=== PATIENT | female | born 1930 | race Caucasian/White ===

== ENCOUNTER 2017-11-13 18:05 | Observation (INO) ==
[2017-11-13] MEDS ORDERED: fentaNYL Citrate Inj 100 MCG/2 ML Ampul IV.PUSH ONE (18:19)
[2017-11-13] MEDS ORDERED: Lidocaine 1%/Epinephrine 1:100,000 Inj 50 ML Vial INFILTRATN ONE (18:46)
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
--- NOTE | 2017-11-13 19:07 | XR ---
EXAM DATE: 11/13/2017 7:01 PM EDT AGE/SEX: 87 years / Female INDICATIONS: Left knee pain CLINICAL DATA: This is the patient's initial encounter. Patient reports that signs and symptoms have been present for 1 day and indicates a pain score of 7/10. MEDICAL/SURGICAL HISTORY: Arthritis. Total knee replacement, right. COMPARISON: . FINDINGS: Severe osteoarthritis is noted involving the medial femoral tibial joint. Moderate osteoarthritis is noted involving the patellofemoral joint. There is no acute fracture or dislocation. No knee joint ef fusion is noted. Chondrocalcinosis is noted. CONCLUSION: 1. 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 2. No acute fracture or dislocation. 3. Chondrocalcinosis. Electronically signed by: Davon Olsen MD 11/13/2017 7:06 PM EDT
--- NOTE | 2017-11-13 19:08 | XR ---
EXAM DATE: 11/13/2017 7:01 PM EDT AGE/SEX: 87 years / Female INDICATIONS: Right knee pain CLINICAL DATA: This is the patient's initial encounter. Patient reports that signs and symptoms have been present for 1 day and indicates a pain score of 7/10. MEDICAL/SURGICAL HISTORY: Arthritis. Total knee replacement, right. COMPARISON: . FINDINGS: There is no acute fracture or dislocation of the right knee. Right total knee arthroplasty has been p erformed. The prosthesis appears to be in good position. CONCLUSION: 1. No acute fracture or dislocation. 2. Status post right total knee arthroplasty. Electronically signed by: Davon Olsen MD 11/13/2017 7:07 PM EDT
[2017-11-13 19:47] LABS: Baso % (Auto) 0.3 % (0.0-2.0); Eos % (Auto) 0.5 % (0.0-4.0); Hematocrit 37.1 % (35.0-46.0); Hemoglobin 12.2 gm/dL (11.6-15.3); Lymph # (Auto) 0.9 th/mm3 (1.0-4.8); Lymph % (Auto) 9.3 % (9.0-44.0); Mean Corpuscular Hemoglobin 34.4 pg (27.0-34.0); Mean Corpuscular Volume 104.4 fL (80.0-100.0); Mean Platelet Volume 8.4 fL (7.0-11.0); Mono # (Auto) 0.8 th/mm3 (0.0-0.9); Mono % (Auto) 8.1 % (0.0-8.0); Neut % (Auto) 81.8 % (16.0-70.0); Platelet Count 192 th/mm3 (150-450); Red Blood Count 3.55 mil/mm3 (4.00-5.30); Red Cell Distribution Width 14.7 % (11.6-17.2); White Blood Count 9.8 th/mm3 (4.0-11.0)
[2017-11-13 20:01] LABS: Calcium 9.1 mg/dL (8.5-10.1); Carbon Dioxide 21.2 meq/L (21.0-32.0); Potassium 3.7 meq/L (3.5-5.1)
[2017-11-13 20:02] LABS: Activated Partial Thrombo Time 20.8 sec (24.3-30.1); Prothrombin Time 10.3 sec (9.8-11.6)
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
[2017-11-14] MEDS ORDERED: Pantoprazole Inj 40 MG Vial IV.PUSH SCH
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
[2017-11-14] MEDS: Sod Chloride 0.9% Inj 1,000 ML IV.CONT SCH ×2 (00:50→09:39)
[2017-11-14] MEDS ORDERED: Chlorhexidine Gluconate 2% 1 Pack (2 Cloths) TOPICAL PRN (04:00)
[2017-11-14] MEDS ORDERED: Chlorhexidine Gluconate 2% 1 Pack (2 Cloths) TOPICAL SCH (04:00)
[2017-11-14] MEDS ORDERED: Docusate Sodium 100 MG Capsule PO SCH (09:00)
[2017-11-14 10:07] LABS: Baso % (Auto) 0.6 % (0.0-2.0); Eos % (Auto) 0.5 % (0.0-4.0); Hematocrit 32.8 % (35.0-46.0); Hemoglobin 11.1 gm/dL (11.6-15.3); Lymph # (Auto) 0.7 th/mm3 (1.0-4.8); Lymph % (Auto) 13.3 % (9.0-44.0); Mean Corpuscular Hemoglobin 34.8 pg (27.0-34.0); Mean Corpuscular Volume 102.3 fL (80.0-100.0); Mean Platelet Volume 8.2 fL (7.0-11.0); Mono # (Auto) 0.7 th/mm3 (0.0-0.9); Mono % (Auto) 12.1 % (0.0-8.0); Neut % (Auto) 73.5 % (16.0-70.0); Platelet Count 206 th/mm3 (150-450); White Blood Count 5.5 th/mm3 (4.0-11.0)
[2017-11-14 10:26] LABS: Calcium 8.3 mg/dL (8.5-10.1); Carbon Dioxide 29.3 meq/L (21.0-32.0); Potassium 3.8 meq/L (3.5-5.1)
--- NOTE | 2017-11-14 11:32 | P.DCO ---
- Physical Therapy Order: Evaluate and treat, Improve ambulation, Strength and gait training - Home Health Nursing Order: Medical education, Signs/symptoms of disease process, Medication education-adverse effect, Nursing assessment with vital signs - Certification I have seen patient Jenny Maher on 11/14/17. My clinical findings support the need for the requested home health care services because: Limited mobility due to disease progression, Deconditioned with increased weakness, Limited ability to care for self, High risk of falls I certify that my clinical findings support that this patient is homebound because: Unsteady gait/balance, Unsafe to leave home unassisted, Unable to use public transportation
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
[2017-11-14 12:20] VITALS: BP 138/63; PULSE 71; RESP 18; TEMP 98.7; O2SAT 86
== END 2017-11-14 14:53 | disposition home or self-care (01) ==
LOC: NEDA 18:05 → NEPC 18:05 → NEPGCP 11-14
PROVIDERS: ADMIT Surgery; ATTEND Surgery